=== PATIENT | female | born 1965 | race African-American/Black ===

== ENCOUNTER → 2020-01-06 | Outpatient (CLI) | payer BC, OTHER | LOC: LAB 14:07 | PROVIDERS: ATTEND Pediatrics | DX: Z01.812 Encounter for preprocedural laboratory examination (principal); Z20.828 Contact with and (suspected) exposure to other viral communicable diseases ==

== ENCOUNTER → 2020-04-16 | Outpatient (CLI) | payer BC, OTHER | LOC: LAB 08:06 | PROVIDERS: ATTEND Pediatrics | DX: Z01.818 Encounter for other preprocedural examination (principal); Z20.828 Contact with and (suspected) exposure to other viral communicable diseases ==

== ENCOUNTER → 2020-04-21 | Outpatient (CLI) | payer BC, OTHER ==
--- NOTE | ~2020-04-21 | MCT ---
[facility] [place] [address] METHACHOLINE CHALLENGE TEST Name: JOSÉSASHAARNALDO Henson Room #: REG [facility].#: [id number] Admission: 04/21/20 Attend Phys: Wolfgang Collins MD Discharge: Date of : 65 Report #: [id number] THIS REPORT FOR: //name// Height: in Exam Date: Weight: lbs BTPS: X >> PRE BRONCHODILATOR: PREDICTED BEST %PRED FORCED VITAL CAPACITY (FRC) L LPM % FORCED EXP VOL/SEC (FEV1) L FEV/FVC % MAX MID-EXP FLOW (FEF 25-75) L/SEC L/SEC % PEAK EXP FLOW RATE (FEF MAX) L/MIN L/MIN MED-VC RATIO (FEF 50/FEF 50) .09 Baseline: Phenol Saline Level 1: 0.025 mg/ml BEST %PRED %CHANGE BEST %PRED %CHANGE FVC 2.63 L 82 % % FVC 2.59 L 80 % -2 % FEV1 2.10 L 87 % % FEV1 2.19 L 91 % 4 % Level 2: 0.25 mg/ml Level 3: 2.5 mg/ml BEST %PRED %CHANGE BEST %PRED %CHANGE FVC 2.46 L 77 % -6 % FVC 2.43 L 76 % -7 % FEV1 2.05 L 83 % -4 % FEV1 2.02 L 84 % -4 % . Level 4: 10 mg/ml Level 5: 25 mg/ml BEST %PRED %CHANGE BEST %PRED %CHANGE FVC 2.44 L 76 % -7 % FVC 2.49 L 78 % -5 % FEV1 1.98 L 82 % -6 % FEV1 2.02 L 84 % -4 % Post Bronchodilator: 1st Treatment Post Bronchodilator: 2nd Treatment BEST %PRED %CHANGE BEST %PRED %CHANGE FVC 2.52 L 79 % -4 % FVC L % % FEV1 2.24 L 93 % 7 % FEV1 L % % Post Bronchodilator: 3rd Treatment BEST %PRED %CHANGE FVC L % % FEV1 L % % >> INTERPRETATION: [facility] [address] [place] [address] METHACHOLINE CHALLENGE TEST Name: YASHIRA JOSÉ Room #: REG [facility].#: [id number] Admission: 04/21/20 Attend Phys: Wolfgang Collins MD Discharge: Date of : 65 Report #: [id number] DATE OF SERVICE: 05/04/2020 METHACHOLINE CHALLENGE TEST Methacholine challenge test: Methacholine challenge test was completed in routine standard fashion with increasing doses of methacholine. Baseline FEV1 is 2.10 liters (87%), FVC is 2.63 liters (82%). With increasing doses of methacholine, there was no significant response to methacholine challenge through 5 measured levels. Lowest FEV1 obtained was 1.98 liters (6% change). There was a mild response to bronchodilator therapy, status post 5 trials with methacholine. IMPRESSION: Negative methacholine challenge test. By: Wolfgang Collins MD /nt
--- NOTE | 2020-04-21 08:59 | 2DMMODE ---
[facility] [place] [address] 2 D/M-MODE ECHOCARDIOGRAM Name: YASHIRA JOSÉ Room #: [facility]#: [id number] Admission: 04/21/20 Attend Phys: Wolfgang Collins MD Discharge: Date of : 65 Report #: [id number] THIS REPORT FOR: cc: Ramiro Marie MD, Simon J. MD Santiago, Patrick MD [facility] ~ ADDENDUM APPROVED REPORT Study performed: 04/21/2020 08:16:37 EXAM: Comprehensive 2D, Doppler, and color-flow Echocardiogram Patient Location: Out-Patient Status: routine BSA: 1.70 HR: 92 bpm BP: 140/72 mmHg Rhythm: NSR Other Information Study Quality: Adequate Indications Short of breath. 2D Dimensions RVDd: 34.51 mm IVSd: 11.54 (7-11mm) LVOT Diam: 19.90 (18-24mm) LVDd: 45.70 mm PWd: 11.54 (7-11mm) LVDs: 35.13 (25-40mm) Aortic Root: 29.69 mm Volumes Left Atrial Volume (Systole) Single Plane 4CH: 44.14 mL Single Plane 2CH: 56.51 mL LA ESV Index: 32.00 mL/m2 Aortic Valve AoV Peak Angel Luis.: 1.10 m/s AO Peak Gr.: 4.86 mmHg LVOT Max P.08 mmHg LVOT Max V: 0.88 m/s VERNELL Vmax: 2.48 cm2 [facility] [place] [address] 2 D/M-MODE ECHOCARDIOGRAM Name: YASHIRA JOSÉ Room #: [facility]#: [id number] Admission: 04/21/20 Attend Phys: Lana De Leon Discharge: Date of : 65 Report #: [id number] Mitral Valve E/A Ratio: 0.8 MV Decel. Time: 188.75 ms MV E Max Angel Luis.: 0.77 m/s MV A Angel Luis.: 1.01 m/s MV PHT: 54.74 ms IVRT: 85.35 ms Pulmonary Valve PV Peak Angel Luis.: 0.93 m/s PV Peak Gr.: 3.45 mmHg Pulmonary Vein P Vein S: 0.48 m/s P Vein D: 0.29 m/s P Vein S/D Ratio: 1.66 Tricuspid Valve TR Peak Angel Luis.: 2.34 m/s RAP Estimate: 5.00 mmHg TR Peak Gr.: 22.00 mmHg PA Pressure: 27.00 mmHg Left Ventricle The left ventricle is normal size. Mild concentric left ventricular hypertrophy. Left ventricular systolic function is mildly decreased. LVEF is 45-50%. Mild diastolic dysfunction is present (impaired relaxation pattern). Right Ventricle The right ventricle is normal size. The right ventricular systolic function is normal. Atria The left atrium size is normal. The right atrium size is normal. Aortic Valve The aortic valve is normal in structure. No aortic regurgitation is present. There is no aortic valvular stenosis. Mitral Valve The mitral valve is normal in structure. Mild mitral regurgitation. Tricuspid Valve The tricuspid valve is normal in structure. Moderate tricuspid regurgitation. Estimated PAP is 25-30mmHg. [facility] [place] [place] [address] 2 D/M-MODE ECHOCARDIOGRAM Name: YASHIRA JOSÉ Room #: REG [facility]#: [id number] Admission: 04/21/20 Attend Phys: Lana De Leon Discharge: Date of : 65 Report #: [id number] Pulmonic Valve The pulmonary valve is normal in structure. Mild pulmonic regurgitation. Great Vessels The aortic root is normal in size. IVC is normal in size and collapses >50% with inspiration. Pericardium There is no pericardial effusion. <Conclusion> Normal left ventricle size Mild concentric hypertrophy Grade 1 diastolic dysfunction EF 45-50%, mild global hypokineses Normal right ventricular size/function Normal atrial size Normal aortic valve structure/function Mild mitral valve insufficiency Moderate tricuspid valve insufficiency Pulmonary artery systolic pressure estimated 25 mmHg No pericardial effusion <ELECTRONICALLY SIGNED> By: Eduardo Haque MD, [facility] 04/21/20 [phone] Eduadro Haque MD, FACC /INF
== END ==
LOC: CV 07:58
PROVIDERS: ATTEND Pediatrics
DX: I08.8 Other rheumatic multiple valve diseases (principal); J84.10 Pulmonary fibrosis, unspecified

== ENCOUNTER → 2021-05-05 | Outpatient (CLI) | payer BC, OTHER | LOC: RAD 12:49 | PROVIDERS: ATTEND Pediatrics | DX: R05.3 Chronic cough (principal); R06.00 Dyspnea, unspecified; R91.8 Other nonspecific abnormal finding of lung field ==